=== PATIENT | male | born 1995 ===

== ENCOUNTER 2020-02-01 08:09 | Emergency (ER) | payer SELFPAY ==
[2020-02-01] MEDS ORDERED: MAGNESIUM SULFATE 2 GM/50 ML BAG IV ONE (08:24)
[2020-02-01] MEDS ORDERED: methylPREDNISolone Sod Succinate 125 MG/2 ML INJ IV ONE (08:24)
[2020-02-01] MEDS ORDERED: IPRATROPIUM 0.02% NEBU 2.5 ML IH ONE (08:24)
[2020-02-01] MEDS ORDERED: ALBUTEROL 2.5 MG/3 ML NEBU IH ONE ×2 (08:24→10:37)
--- NOTE | 2020-02-01 08:41 | Emergency Department Report ---
ED Shortness of Breath HPI - General Chief Complaint: Dyspnea/Respdistress Stated Complaint: ASTHMA Source: patient Mode of arrival: Ambulatory Limitations: No Limitations - History of Present Illness Initial Comments: 24-year-old male with a past medical history of asthma without previous intubations presents to the hospital planing of shortness of breath for "a couple of days" that acutely worsened this a.m. No improvement with home neb treatment prior to arrival. Patient presents to the ED with active wheezing a room air saturation 85%. He complains of cough with deep inspiration. Cough is productive and is green, yellow, clear, and sometimes brown in color. He does not complain of any fevers or body aches. He is not currently on steroids. He tested negative for coronavirus approximately 1 month ago. Patient traveled here from [place] yesterday. He denies loss of sense of taste or smell, calf tenderness, leg edema, history of DVT/PE or pleuritic chest pain. Patient quit smoking 1 month ago - Related Data Previous Rx's Medication Instructions Recorded Last Taken Type ALBUTEROL NEB's [Proventil 0.083% 2.5 mg IH TID PRN #30 neb 02/01/20 Unknown Rx NEBS] Albuterol Sulfate [Proventil Hfa] 1 - 2 puff IH Q4HR PRN #1 02/01/20 Unknown Rx [email or web address] Prednisone [predniSONE 10 mg 10 mg PO .TAPER #1 tab.ds.pk 02/01/20 Unknown Rx (6-Day Pack, 21 Tabs)] Allergies Allergy/AdvReac Type Severity Reaction Status Date / Time No Known Allergies Allergy Unverified 02/01/20 08:12 ED Review of Systems ROS: Stated complaint: ASTHMA Other details as noted in HPI Comment: All other systems reviewed and negative ED Past Medical Hx - Past Medical History Previous Medical History?: Yes Hx Asthma: Yes - Surgical History Past Surgical History?: No - Medications Home Medications: Home Medications Medication Instructions Recorded Confirmed Last Taken Type ALBUTEROL NEB's [Proventil 0.083% 2.5 mg IH TID PRN #30 neb 02/01/20 Unknown Rx NEBS] Albuterol Sulfate [Proventil Hfa] 1 - 2 puff IH Q4HR PRN #1 02/01/20 Unknown Rx [email or web address] Prednisone [predniSONE 10 mg 10 mg PO .TAPER #1 tab.ds.pk 02/01/20 Unknown Rx (6-Day Pack, 21 Tabs)] ED Physical Exam - General Limitations: No Limitations - Other Other exam information: General: No acute distress Head: Atraumatic Eyes: normal appearance ENT: Moist mucous membranes Neck: Normal appearance, no midline tenderness Chest: Bilateral wheezing, able to speak in complete sentences although mildly tachypnea. Dry cough with deep inspiration CV: Tachycardic regular rhythm Abdomen: Soft, normal bowel sounds, nontender, nondistended, no rebound or guarding Back: Normal inspection Extremity: Normal inspection, full range of motion, no calf tenderness or leg edema Neuro: Alert O x 3, no facial asymmetry, speech clear, no gross motor sensory deficit Psych: Appropriate behavior Skin: No rash ED Course Vital Signs 02/01/20 02/01/20 02/01/20 08:15 08:32 08:40 Temperature 99.2 F Pulse Rate 117 H 92 H Pulse Rate [ 115 H Anterior Bilateral Throughout] Respiratory 26 H 17 Rate Respiratory 23 Rate [Anterior Bilateral Throughout] Blood Pressure Blood Pressure 132/86 [Right] O2 Sat by Pulse 85 95 Oximetry 02/01/20 02/01/20 02/01/20 08:46 09:00 09:16 Temperature Pulse Rate 63 62 75 Pulse Rate [ Anterior Bilateral Throughout] Respiratory 11 L 15 13 Rate Respiratory Rate [Anterior Bilateral Throughout] Blood Pressure 134/79 115/76 124/83 Blood Pressure [Right] O2 Sat by Pulse 95 97 97 Oximetry 02/01/20 02/01/20 02/01/20 09:30 09:46 10:00 Temperature Pulse Rate 68 73 69 Pulse Rate [ Anterior Bilateral Throughout] Respiratory 12 13 12 Rate Respiratory Rate [Anterior Bilateral Throughout] Blood Pressure 117/87 124/83 120/80 Blood Pressure [Right] O2 Sat by Pulse 95 96 96 Oximetry 02/01/20 02/01/20 02/01/20 10:16 10:30 10:46 Temperature Pulse Rate 67 72 86 Pulse Rate [ Anterior Bilateral Throughout] Respiratory 13 12 11 L Rate Respiratory Rate [Anterior Bilateral Throughout] Blood Pressure 132/72 129/75 113/67 Blood Pressure [Right] O2 Sat by Pulse 96 95 96 Oximetry 02/01/20 02/01/20 02/01/20 11:00 11:12 11:16 Temperature Pulse Rate 77 74 Pulse Rate [ 110 H Anterior Bilateral Throughout] Respiratory 17 12 Rate Respiratory 19 Rate [Anterior Bilateral Throughout] Blood Pressure 108/64 125/77 Blood Pressure [Right] O2 Sat by Pulse 96 96 Oximetry 02/01/20 02/01/20 02/01/20 11:30 11:38 11:46 Temperature Pulse Rate 100 H 68 Pulse Rate [ Anterior Bilateral Throughout] Respiratory 19 18 12 Rate Respiratory Rate [Anterior Bilateral Throughout] Blood Pressure 134/85 108/64 Blood Pressure [Right] O2 Sat by Pulse 95 96 97 Oximetry 02/01/20 02/01/20 12:00 12:16 Temperature Pulse Rate 63 78 Pulse Rate [ Anterior Bilateral Throughout] Respiratory 10 L 11 L Rate Respiratory Rate [Anterior Bilateral Throughout] Blood Pressure 128/77 109/58 Blood Pressure [Right] O2 Sat by Pulse 97 92 Oximetry - Reevaluation(s) Reevaluation #1: 02/01/20 10:36 After initial round of nebs, Solu-Medrol, and magnesium patient still with mild residual end expiratory wheezing but reports feeling a lot better. ED Medical Decision Making - Radiology Data Radiology results: report reviewed CHEST 1 VIEW INDICATION / CLINICAL INFORMATION: sob, wheezing, hypoxia. COMPARISON: None available. FINDINGS: SUPPORT DEVICES: None. HEART / MEDIASTINUM: No significant abnormality. LUNGS / PLEURA: No focal infiltrate is seen.. No pneumothorax. There is inflation of the lungs ADDITIONAL FINDINGS: No significant additional findings. IMPRESSION: 1. There is hyperinflation lungs. No focal infiltrate is seen. No pneumothorax is seen. - Medical Decision Making Patient feeling much better with ED treatment with improvement and wheezing after Solu-Medrol, multiple bronchodilators, and magnesium. Wheezing improved. At rest patient is O2 sat drops down to 88-94%. With exertion patient's O2 sat dropped down to 85%. Patient refused ABG, admission, and CT angiogram chest to rule out pulmonary embolus Patient insists that he had similar symptoms 1 month ago when he was admitted to the hospital his work-up was unremarkable (when his covid test was neg) Patient wants to go back to [place] for his work-up and refuses work-up and further treat He was informed that he needs home oxygen if his O2 Patient states he feels fine and will be all right and refuses additional treatment and wants to go Critical Care Time: No Critical care attestation.: If time is entered above; I have spent that time in minutes in the direct care of this critically ill patient, excluding procedure time. ED Disposition Clinical Impression: Acute asthma exacerbation, Hypoxia Disposition: LEFT AGAINST MED ADVICE Is pt being admited?: No Condition: Stable Instructions: Asthma (ED), Hypoxia (ED) Additional Instructions: Take the medication as prescribed. Follow-up with your doctor or doctor/clinic provided. Return if symptoms worsen as indicated by your discharge instructions. You are signing out AGAINST MEDICAL ADVICE. Your oxygen is low. You have declined CT angiogram chest to rule out blood clot in your lungs. You also have a series ABGs to further identify your oxygen level in your bloodstream. You have refused admission to the hospital for further treatment. Is very important that you seek medical attention if your symptoms worsen Prescriptions: Prednisone [predniSONE 10 mg (6-Day Pack, 21 Tabs)] 10 mg PO .TAPER #1 tab.ds.pk ALBUTEROL NEB's [Proventil 0.083% NEBS] 2.5 mg IH TID PRN #30 neb PRN Reason: Wheezing Albuterol Sulfate [Proventil Hfa] 1 - 2 puff IH Q4HR PRN #1 [email or web address] PRN Reason: Wheezing Referrals: TEO ROBLES MD [Staff Physician] - 3-5 Days (Pulmonology) SANJEEV FREITAS MD [Staff Physician] - 3-5 Days (Primary care doctor) Forms: AMA Form Time of Disposition: 14:03
--- NOTE | 2020-02-01 08:59 | XRay Report ---
CHEST 1 VIEW INDICATION / CLINICAL INFORMATION: sob, wheezing, hypoxia. COMPARISON: None available. FINDINGS: SUPPORT DEVICES: None. HEART / MEDIASTINUM: No significant abnormality. LUNGS / PLEURA: No focal infiltrate is seen.. No pneumothorax. There is inflation of the lungs ADDITIONAL FINDINGS: No significant additional findings. IMPRESSION: 1. There is hyperinflation lungs. No focal infiltrate is seen. No pneumothorax is seen. Signer Name: Deo Cao MD Signed: 02/01/2020 8:55 AM Workstation Name: [id number]
[2020-02-01 15:37] VITALS: BP 105/70
== END 2020-02-01 14:07 | disposition left against medical advice (07) ==
LOC: ED 08:09
DX: R09.02 Hypoxemia (principal); J45.901 Unspecified asthma with (acute) exacerbation
CPT/HCPCS: 71045; 94644; 96365; 96375; 99284; J2930; J3475